=== PATIENT | male | born 2005 | race African-American/Black ===

== ENCOUNTER 2023-02-11 09:37 | Emergency (ER) | payer SELFPAY ==
[~2023-02-11] VITALS: Ht 175.3 cm; Wt 100.0 kg
[2023-02-11 09:45] VITALS: BP 145/92; PULSE 72; RESP 18; TEMP 97.3; O2SAT 99
[2023-02-11] MEDS ORDERED: MAGNESIUM/ALUMINUM HYDROXIDE/SIMETHICONE 30ML UDC PO ONE (10:15)
[2023-02-11] MEDS ORDERED: FAMOTIDINE 20MG TABLET PO ONE (10:15)
[2023-02-11] MEDS ORDERED: ONDANSETRON 4MG ODT PO ONE (10:15)
[2023-02-11 10:58] LABS: BASOPHILS % 0.3 % (0.0-2.0); EOSINOPHILS % 0.1 % (0.0-5.0); HEMATOCRIT. 47.7 % (42.0-52.0); HEMOGLOBIN. 15.7 g/dL (14.0-18.0); LYMPHOCYTES % 12.9 % (20.0-50.0); MEAN CORPUSCULAR HEMOGLOBIN 30.9 pg (28.0-32.0); MEAN CORPUSCULAR HGB CONC 32.9 g/dL (31.0-37.0); MEAN CORPUSCULAR VOLUME 93.9 fL (80.0-94.0); MEAN PLATELET VOLUME 9.1 fl (7.4-10.4); MONOCYTES % 3.9 % (2.0-8.0); NEUTROPHILS % 82.8 % (40.0-76.0); PLATELET 180 x1000/uL (130-400); RED BLOOD CELL COUNT 5.08 mill/uL (4.7-6.1); RED CELL DISTRIBUTION WIDTH 13.6 % (11.6-14.6); WHITE BLOOD COUNT 8.1 x1000/uL (4.5-11.0)
[2023-02-11] MEDS ORDERED: METOCLOPRAMIDE HCL 10MG/2ML VIAL IV ONE (11:00)
[2023-02-11] MEDS ORDERED: SODIUM CHLORIDE 0.9% 1,000 ML IV ONE (11:00)
[2023-02-11 11:28] LABS: ALANINE AMINOTRANSFERASE 23 IU/L (10-49); ALBUMIN 4.5 g/dL (3.2-4.8); ASPARTATE AMINOTRANSFERASE 17 IU/L (<34); BILIRUBIN TOTAL 0.5 mg/dL (0.1-1.0); CALCIUM 9.9 mg/dL (8.7-10.4); CARBON DIOXIDE 24 mEq/L (21-32); CHLORIDE 107 mEq/L (98-107); CREATININE 0.9 mg/dL (0.6-1.3); GLUCOSE 140 mg/dL (70-105); POTASSIUM 3.8 mEq/L (3.5-5.1); PROTEIN TOTAL 6.6 g/dL (6.0-8.3); SODIUM 139 mEq/L (136-145); UREA NITROGEN BLOOD 7 mg/dL (9-23)
[2023-02-12] MEDS ORDERED: OMEP40CA20 PO (11:28)
[2023-02-12] MEDS ORDERED: TOPUD PO (11:28)
== END 2023-02-11 12:12 | disposition left against medical advice (07) ==
LOC: ER 12:07
DX: K21.9 Gastro-esophageal reflux disease without esophagitis (principal); K29.70 Gastritis, unspecified, without bleeding; R11.2 Nausea with vomiting, unspecified
CPT/HCPCS: 99284; 80053; 83690; 85025; 36415; Q0162; J7030

== ENCOUNTER 2023-02-12 06:08 | Emergency (ER) | payer SELFPAY ==
[~2023-02-12] VITALS: Ht 175.3 cm; Wt 91.0 kg
[2023-02-12] MEDS ORDERED: MORPHINE SULFATE 4 MG/ML CPJ (NOT FOR IM USE) IV STA (06:13)
[2023-02-12] MEDS ORDERED: ONDANSETRON HCL 4MG/2ML INJ IV STA (06:13)
[2023-02-12] MEDS ORDERED: SODIUM CHLORIDE 0.9% 1,000 ML IV ONE (06:15)
[2023-02-12 06:16] VITALS: TEMP 98.7; O2SAT 100
[2023-02-12 07:01] LABS: PROTHROMBIN TIME 10.7 sec (9.6-11.0)
[2023-02-12 07:04] LABS: BASOPHILS % 0.3 % (0.0-2.0); EOSINOPHILS % 0.1 % (0.0-5.0); HEMATOCRIT. 46.6 % (42.0-52.0); HEMOGLOBIN. 16.1 g/dL (14.0-18.0); LYMPHOCYTES % 10.1 % (20.0-50.0); MEAN CORPUSCULAR HEMOGLOBIN 31.3 pg (28.0-32.0); MEAN CORPUSCULAR HGB CONC 34.4 g/dL (31.0-37.0); MEAN CORPUSCULAR VOLUME 90.8 fL (80.0-94.0); MONOCYTES % 5.5 % (2.0-8.0); PLATELET 223 x1000/uL (130-400); RED BLOOD CELL COUNT 5.14 mill/uL (4.7-6.1); RED CELL DISTRIBUTION WIDTH 13.6 % (11.6-14.6); WHITE BLOOD COUNT 13.6 x1000/uL (4.5-11.0)
[2023-02-12 07:10] LABS: ALANINE AMINOTRANSFERASE 23 IU/L (10-49); ALBUMIN 4.7 g/dL (3.2-4.8); ASPARTATE AMINOTRANSFERASE 17 IU/L (<34); CALCIUM 10.6 mg/dL (8.7-10.4); CARBON DIOXIDE 28 mEq/L (21-32); CHLORIDE 100 mEq/L (98-107); GLUCOSE 120 mg/dL (70-105); POTASSIUM 3.7 mEq/L (3.5-5.1); PROTEIN TOTAL 7.9 g/dL (6.0-8.3); SODIUM 139 mEq/L (136-145); UREA NITROGEN BLOOD 9 mg/dL (9-23)
[2023-02-12] MEDS ORDERED: ONDANSETRON HCL 4MG/2ML INJ IV NR (08:45)
[2023-02-12] MEDS ORDERED: MORPHINE SULFATE 4 MG/ML CPJ (NOT FOR IM USE) IV NR (08:45)
[2023-02-12 10:12] VITALS: BP 140/63; PULSE 77; RESP 16
[2023-02-12] MEDS ORDERED: OMEP40CA20 PO (11:28)
[2023-02-12] MEDS ORDERED: TOPUD PO (11:28)
[2023-02-12 12:12] LABS: CLARITY URINE CLEAR (CLEAR); COLOR URINE YELLOW (YELLOW); GLUCOSE URINE NEGATIVE (NEGATIVE); KETONES URINE NEGATIVE (NEGATIVE); LEUKOCYTE ESTERASE URINE TRACE (NEGATIVE); NITRITE URINE NEGATIVE (NEGATIVE); OCCULT BLOOD URINE NEGATIVE (NEGATIVE); PH URINE 7.5 (4.5-8.0); PROTEIN URINE 1+ (NEGATIVE); SPECIFIC GRAVITY URINE 1.037 (1.005-1.030)
[2023-02-12 13:02] LABS: RBC URINE NONE SEEN /hpf (0-2)
[2023-02-12 13:03] LABS: BACTERIA URINE 1+; SQUAMOUS EPITHELIAL CELL URINE 2+ /lpf (RARE/1+); YEAST URINE NONE SEEN
== END 2023-02-12 12:21 | disposition home or self-care (01) ==
LOC: ER 06:28
DX: K21.9 Gastro-esophageal reflux disease without esophagitis (principal); K29.70 Gastritis, unspecified, without bleeding; R11.2 Nausea with vomiting, unspecified; J45.909 Unspecified asthma, uncomplicated
CPT/HCPCS: 80053; 81003; 83690; 85025; 85610; 36415; 74176; 96361; 96374; 96375; 99285; J2405; J2270; J7030; Z7610 ×3

== ENCOUNTER 2023-02-16 07:21 | Emergency (ER) | payer MEDICAID ==
[~2023-02-16] VITALS: Ht 175.3 cm; Wt 90.0 kg
[~2023-02-16 07:21] MED LIST: OMEP40CA20 PO; TOPUD PO
[2023-02-16 07:29] VITALS: BP 114/78; PULSE 70; RESP 20; TEMP 98; O2SAT 99
[2023-02-16 08:18] LABS: CLARITY URINE TURBID (CLEAR); COLOR URINE YELLOW (YELLOW); GLUCOSE URINE NEGATIVE (NEGATIVE); KETONES URINE TRACE (NEGATIVE); LEUKOCYTE ESTERASE URINE 1+ (NEGATIVE); NITRITE URINE NEGATIVE (NEGATIVE); OCCULT BLOOD URINE NEGATIVE (NEGATIVE); PROTEIN URINE TRACE (NEGATIVE); SPECIFIC GRAVITY URINE 1.026 (1.005-1.030)
[2023-02-16 08:38] LABS: RBC URINE 0-2 /hpf (0-2); SQUAMOUS EPITHELIAL CELL URINE FEW /lpf (RARE/1+)
[2023-02-16 08:39] LABS: BACTERIA URINE 1+; YEAST URINE NONE SEEN
[2023-02-16 08:46] LABS: AMORPHOUS SEDIMENT URINE 3+ /lpf
[2023-02-16 08:54] LABS: BASOPHILS % 0.6 % (0.0-2.0); EOSINOPHILS % 0.9 % (0.0-5.0); HEMATOCRIT. 48.4 % (42.0-52.0); HEMOGLOBIN. 16.6 g/dL (14.0-18.0); LYMPHOCYTES % 21.7 % (20.0-50.0); MEAN CORPUSCULAR HEMOGLOBIN 31.1 pg (28.0-32.0); MEAN CORPUSCULAR HGB CONC 34.2 g/dL (31.0-37.0); MEAN CORPUSCULAR VOLUME 90.9 fL (80.0-94.0); MEAN PLATELET VOLUME 8.5 fl (7.4-10.4); NEUTROPHILS % 69.8 % (40.0-76.0); PLATELET 232 x1000/uL (130-400); RED BLOOD CELL COUNT 5.32 mill/uL (4.7-6.1); RED CELL DISTRIBUTION WIDTH 13.6 % (11.6-14.6); WHITE BLOOD COUNT 8.3 x1000/uL (4.5-11.0)
[2023-02-16 13:19] LABS: ALANINE AMINOTRANSFERASE 19 IU/L (10-49); ALBUMIN 4.7 g/dL (3.2-4.8); ASPARTATE AMINOTRANSFERASE 17 IU/L (<34); BILIRUBIN TOTAL 1.5 mg/dL (0.1-1.0); CALCIUM 9.5 mg/dL (8.7-10.4); CARBON DIOXIDE 20 mEq/L (21-32); CHLORIDE 106 mEq/L (98-107); GLUCOSE 90 mg/dL (70-105); PROTEIN TOTAL 7.9 g/dL (6.0-8.3); SODIUM 141 mEq/L (136-145); UREA NITROGEN BLOOD 10 mg/dL (9-23)
== END 2023-02-18 17:06 | disposition left against medical advice (07) ==
LOC: ER 07:21
DX: Z53.21 Procedure and treatment not carried out due to patient leaving prior to being seen by health care provider (principal)
CPT/HCPCS: 36415; 80053; 81003; 85025; 99281

== ENCOUNTER 2023-06-13 08:25 | Emergency (ER) | payer SELFPAY ==
[~2023-06-13] VITALS: Ht 162.6 cm; Wt 87.0 kg
[2023-06-13 08:27] VITALS: O2SAT 100
[2023-06-13 08:41] LABS: BASOPHILS % 0.9 % (0.0-2.0); EOSINOPHILS % 1.4 % (0.0-5.0); HEMATOCRIT. 43.9 % (42.0-52.0); LYMPHOCYTES % 21.6 % (20.0-50.0); MEAN CORPUSCULAR HEMOGLOBIN 31.5 pg (28.0-32.0); MEAN CORPUSCULAR HGB CONC 34.1 g/dL (31.0-37.0); MEAN CORPUSCULAR VOLUME 92.3 fL (80.0-94.0); MEAN PLATELET VOLUME 8.5 fl (7.4-10.4); NEUTROPHILS % 69.1 % (40.0-76.0); PLATELET 209 x1000/uL (130-400); RED BLOOD CELL COUNT 4.75 mill/uL (4.7-6.1); RED CELL DISTRIBUTION WIDTH 13.5 % (11.6-14.6); WHITE BLOOD COUNT 6.8 x1000/uL (4.5-11.0)
[2023-06-13 09:22] LABS: ALANINE AMINOTRANSFERASE 49 IU/L (10-49); ALBUMIN 4.6 g/dL (3.2-4.8); ASPARTATE AMINOTRANSFERASE 22 IU/L (<34); BILIRUBIN TOTAL 0.6 mg/dL (0.1-1.0); CARBON DIOXIDE 26 mEq/L (21-32); CHLORIDE 108 mEq/L (98-107); GLUCOSE 117 mg/dL (70-105); PROTEIN TOTAL 7.2 g/dL (6.0-8.3); SODIUM 137 mEq/L (136-145); UREA NITROGEN BLOOD 10 mg/dL (9-23)
[2023-06-13 10:13] LABS: CLARITY URINE CLEAR (CLEAR); COLOR URINE YELLOW (YELLOW); GLUCOSE URINE NEGATIVE (NEGATIVE); KETONES URINE NEGATIVE (NEGATIVE); LEUKOCYTE ESTERASE URINE 1+ (NEGATIVE); NITRITE URINE NEGATIVE (NEGATIVE); OCCULT BLOOD URINE NEGATIVE (NEGATIVE); PH URINE 8.5 (4.5-8.0); PROTEIN URINE NEGATIVE (NEGATIVE); SPECIFIC GRAVITY URINE 1.022 (1.005-1.030); UROBILINOGEN URINE 0.2 E.U./dL (0.2-1.0)
[2023-06-13 10:45] LABS: SQUAMOUS EPITHELIAL CELL URINE RARE /lpf (RARE/1+)
[2023-06-13 10:46] LABS: BACTERIA URINE TRACE; MUCUS URINE TRACE /lpf (NONE/TRACE)
[2023-06-13 10:47] LABS: RBC URINE NONE SEEN /hpf (0-2)
[2023-06-13 10:59] LABS: WBC URINE 15-25 /hpf (0-2)
[2023-06-13] MEDS ORDERED: OMEP40CA20 MT (12:18)
[2023-06-13] MEDS ORDERED: MAG-55 MT (12:18)
[2023-06-13] MEDS: ONDANSETRON 4MG ODT PO ONE (12:29)
[2023-06-13] MEDS: MAGNESIUM/ALUMINUM HYDROXIDE/SIMETHICONE 30ML UDC PO ONE (12:29)
[2023-06-13] MEDS: PANTOPRAZOLE 40MG DR TABLET PO ONE (12:29)
[2023-06-13 12:33] VITALS: BP 134/77; PULSE 90; RESP 19; TEMP 98.2
== END 2023-06-13 13:01 | disposition home or self-care (01) ==
LOC: ER 08:55
DX: K29.70 Gastritis, unspecified, without bleeding (principal); J45.909 Unspecified asthma, uncomplicated; F12.90 Cannabis use, unspecified, uncomplicated
CPT/HCPCS: 99284; 80053; 81003; 83690; 85025; 87086; 36415; Q0162

== ENCOUNTER 2023-06-13 18:30 | Emergency (ER) | payer OTHER ==
[~2023-06-13] VITALS: Ht 172.7 cm; Wt 63.0 kg
[~2023-06-13 18:30] MED LIST changes: +MAG-55 MT; +OMEP40CA20 MT
[2023-06-13 18:34] VITALS: BP 108/61; PULSE 75; RESP 16; TEMP 98.5; O2SAT 100
== END 2023-06-14 01:00 | disposition left against medical advice (07) ==
LOC: ER 18:30
DX: R10.9 Unspecified abdominal pain (principal); Z53.21 Procedure and treatment not carried out due to patient leaving prior to being seen by health care provider
CPT/HCPCS: 99281

== ENCOUNTER 2023-06-20 09:26 | Emergency (ER) | payer OTHER ==
[~2023-06-20] VITALS: Ht 175.3 cm; Wt 70.0 kg
[2023-06-20 09:27] VITALS: O2SAT 99
[2023-06-20] MEDS: MORPHINE SULFATE 4 MG/ML INJ (FOR IV/IM USE) IV STA (09:53)
[2023-06-20] MEDS: FAMOTIDINE 20MG/2ML VIAL IV STA (09:53)
[2023-06-20 09:54] VITALS: TEMP 98.1
[2023-06-20] MEDS: ONDANSETRON HCL 4MG/2ML INJ IV STA (09:54)
[2023-06-20 10:07] LABS: BASOPHILS % 0.8 % (0.0-2.0); EOSINOPHILS % 0.5 % (0.0-5.0); HEMOGLOBIN. 15.1 g/dL (14.0-18.0); MEAN CORPUSCULAR HEMOGLOBIN 31.7 pg (28.0-32.0); MEAN CORPUSCULAR HGB CONC 34.3 g/dL (31.0-37.0); MEAN CORPUSCULAR VOLUME 92.5 fL (80.0-94.0); MEAN PLATELET VOLUME 8.3 fl (7.4-10.4); MONOCYTES % 4.8 % (2.0-8.0); NEUTROPHILS % 79.9 % (40.0-76.0); PLATELET 216 x1000/uL (130-400); RED BLOOD CELL COUNT 4.76 mill/uL (4.7-6.1); RED CELL DISTRIBUTION WIDTH 13.6 % (11.6-14.6); WHITE BLOOD COUNT 8.4 x1000/uL (4.5-11.0)
[2023-06-20 10:20] LABS: INR 0.9
[2023-06-20 10:38] LABS: ALANINE AMINOTRANSFERASE 44 IU/L (10-49); ALBUMIN 4.5 g/dL (3.2-4.8); ASPARTATE AMINOTRANSFERASE 22 IU/L (<34); BILIRUBIN TOTAL 0.7 mg/dL (0.1-1.0); CALCIUM 9.1 mg/dL (8.7-10.4); CARBON DIOXIDE 28 mEq/L (21-32); CHLORIDE 105 mEq/L (98-107); CREATININE 1.1 mg/dL (0.6-1.3); GLUCOSE 123 mg/dL (70-105); POTASSIUM 3.8 mEq/L (3.5-5.1); PROTEIN TOTAL 6.7 g/dL (6.0-8.3); SODIUM 139 mEq/L (136-145); UREA NITROGEN BLOOD 11 mg/dL (9-23)
[2023-06-20] MEDS: MORPHINE SULFATE 4 MG/ML INJ (FOR IV/IM USE) IV ONE (12:39)
[2023-06-20] MEDS: HALOPERIDOL LACTATE 5MG/ML VIAL IM ONE (12:40)
[2023-06-20 16:30] VITALS: BP 122/67; PULSE 63; RESP 19
[2023-06-20 17:45] LABS: CLARITY URINE CLEAR (CLEAR); COLOR URINE YELLOW (YELLOW); GLUCOSE URINE NEGATIVE (NEGATIVE); KETONES URINE NEGATIVE (NEGATIVE); LEUKOCYTE ESTERASE URINE TRACE (NEGATIVE); NITRITE URINE NEGATIVE (NEGATIVE); OCCULT BLOOD URINE NEGATIVE (NEGATIVE); PH URINE >=9.0 (4.5-8.0); PROTEIN URINE TRACE (NEGATIVE); SPECIFIC GRAVITY URINE 1.024 (1.005-1.030); UROBILINOGEN URINE 0.2 E.U./dL (0.2-1.0)
[2023-06-20 18:02] LABS: BACTERIA URINE NONE SEEN; RBC URINE 0-2 /hpf (0-2); SQUAMOUS EPITHELIAL CELL URINE 1+ /lpf (RARE/1+); WBC URINE 0-2 /hpf (0-2)
== END 2023-06-20 17:14 | disposition left against medical advice (07) ==
LOC: ER 09:26 → CANBEDREQ 10:28 → EDBEDREQ 12:36 → ER 17:14 → CANBEDREQ 06-21 10:35
DX: R10.9 Unspecified abdominal pain (principal); F12.10 Cannabis abuse, uncomplicated; J45.909 Unspecified asthma, uncomplicated; Z98.890 Other specified postprocedural states
CPT/HCPCS: 80053; 81003; 83690; 85025; 85610; 36415; 96372; 96374; 96375; 96376; 99285; J3490; J1630; J2405; J2270; Z7610 ×2

== ENCOUNTER 2023-11-01 07:32 | Emergency (ER) | payer MEDICAID, OTHER ==
[~2023-11-01] VITALS: Ht 172.7 cm; Wt 86.0 kg
[2023-11-01 07:38] VITALS: O2SAT 100
[2023-11-01] MEDS ORDERED: FAMOTIDINE 20MG/2ML VIAL IV STA (07:52)
[2023-11-01] MEDS ORDERED: ONDANSETRON HCL 4MG/2ML INJ IV STA (07:52)
[2023-11-01] MEDS ORDERED: SODIUM CHLORIDE 0.9% 1,000 ML IV ONE (08:00)
[2023-11-01] MEDS ORDERED: MORPHINE SULFATE 4 MG/ML INJ (FOR IV/IM USE) IV ONE (08:00)
[2023-11-01 08:09] LABS: BASOPHILS % 0.7 % (0.0-2.0); EOSINOPHILS % 0.5 % (0.0-5.0); HEMATOCRIT. 42.4 % (42.0-52.0); HEMOGLOBIN. 14.7 g/dL (14.0-18.0); LYMPHOCYTES % 14.8 % (20.0-50.0); MEAN CORPUSCULAR HEMOGLOBIN 31.3 pg (28.0-32.0); MEAN CORPUSCULAR HGB CONC 34.6 g/dL (31.0-37.0); MEAN CORPUSCULAR VOLUME 90.5 fL (80.0-94.0); MEAN PLATELET VOLUME 8.4 fl (7.4-10.4); MONOCYTES % 4.2 % (2.0-8.0); NEUTROPHILS % 79.8 % (40.0-76.0); PLATELET 235 x1000/uL (130-400); RED BLOOD CELL COUNT 4.68 mill/uL (4.7-6.1); RED CELL DISTRIBUTION WIDTH 13.2 % (11.6-14.6); WHITE BLOOD COUNT 8.4 x1000/uL (4.5-11.0)
[2023-11-01 08:16] LABS: CLARITY URINE TURBID (CLEAR); COLOR URINE YELLOW (YELLOW); GLUCOSE URINE NEGATIVE (NEGATIVE); KETONES URINE TRACE (NEGATIVE); LEUKOCYTE ESTERASE URINE TRACE (NEGATIVE); NITRITE URINE NEGATIVE (NEGATIVE); OCCULT BLOOD URINE NEGATIVE (NEGATIVE); PROTEIN URINE TRACE (NEGATIVE); SPECIFIC GRAVITY URINE 1.033 (1.005-1.030)
[2023-11-01 08:20] LABS: CHLORIDE 110 mEq/L (98-107); POTASSIUM 4.1 mEq/L (3.5-5.1); SODIUM 140 mEq/L (136-145)
[2023-11-01 08:21] LABS: CARBON DIOXIDE 24 mEq/L (21-32)
[2023-11-01 08:22] LABS: CALCIUM 9.7 mg/dL (8.7-10.4)
[2023-11-01 08:27] LABS: GLUCOSE 128 mg/dL (70-105); UREA NITROGEN BLOOD 13 mg/dL (9-23)
[2023-11-01 08:28] LABS: ALANINE AMINOTRANSFERASE 26 IU/L (10-49); ALBUMIN 4.8 g/dL (3.2-4.8); ASPARTATE AMINOTRANSFERASE 17 IU/L (<34)
[2023-11-01 08:29] LABS: BILIRUBIN DIRECT 0.2 mg/dL (<=3.0); BILIRUBIN TOTAL 0.8 mg/dL (0.1-1.0); PROTEIN TOTAL 7.1 g/dL (6.0-8.3)
[2023-11-01 08:30] LABS: AMORPHOUS SEDIMENT URINE 4+ /lpf; BACTERIA URINE 1+; RBC URINE NONE SEEN /hpf (0-2); SQUAMOUS EPITHELIAL CELL URINE NONE SEEN /lpf (RARE/1+); YEAST URINE NONE SEEN
[2023-11-01] MEDS ORDERED: OMEPRAZOLE 20MG CAPSULE EXTENDED RELEASE PO ONE (08:45)
[2023-11-01] MEDS ORDERED: PANTOPRAZOLE 40MG DR TABLET PO ONE (08:45)
[2023-11-01] MEDS ORDERED: PANTOPRAZOLE 40MG DR TABLET PO SCH (08:45)
[2023-11-01] MEDS: DICYCLOMINE 10 MG/5 ML ORAL SYR PO STA (08:53)
[2023-11-01] MEDS: MAGNESIUM/ALUMINUM HYDROXIDE/SIMETHICONE 30ML UDC PO STA (08:53)
[2023-11-01] MEDS: PANTOPRAZOLE 40MG DR TABLET PO SCH (08:53)
[2023-11-01 08:59] VITALS: BP 132/85; PULSE 66; RESP 16; TEMP 36.55848; O2SAT 100
[2023-11-01] MEDS ORDERED: OMEP40CA20 PO (23:28)
[2023-11-01] MEDS ORDERED: OMEP20TA23 PO (23:30)
== END 2023-11-01 09:02 | disposition home or self-care (01) ==
LOC: ER 07:32
DX: K21.9 Gastro-esophageal reflux disease without esophagitis (principal); J45.909 Unspecified asthma, uncomplicated; Z79.899 Other long term (current) drug therapy
CPT/HCPCS: 36415; 80048; 80076; 81003; 85025; 99283; J7030

== ENCOUNTER 2023-11-04 05:47 | Emergency (ER) | payer MEDICAID ==
[~2023-11-04] VITALS: Ht 165.1 cm; Wt 131.5 kg
[~2023-11-04 05:47] MED LIST changes: +OMEP20TA23 PO
[2023-11-04 05:57] VITALS: BP 133/88; PULSE 78; RESP 16; TEMP 97.6; O2SAT 100
[2023-11-04] MEDS ORDERED: ONDANSETRON HCL 4MG/2ML INJ IV STA (06:02)
[2023-11-04] MEDS ORDERED: HALOPERIDOL LACTATE 5MG/ML VIAL IM ONE (06:15)
[2023-11-04] MEDS ORDERED: SODIUM CHLORIDE 0.9% 1,000 ML IV ONE (06:15)
[2023-11-04 06:33] LABS: BASOPHILS % 0.5 % (0.0-2.0); EOSINOPHILS % 0.6 % (0.0-5.0); HEMATOCRIT. 45.3 % (42.0-52.0); HEMOGLOBIN. 15.2 g/dL (14.0-18.0); MEAN CORPUSCULAR HEMOGLOBIN 30.9 pg (28.0-32.0); MEAN CORPUSCULAR HGB CONC 33.6 g/dL (31.0-37.0); MEAN CORPUSCULAR VOLUME 92.1 fL (80.0-94.0); MEAN PLATELET VOLUME 8.6 fl (7.4-10.4); MONOCYTES % 5.3 % (2.0-8.0); NEUTROPHILS % 71.6 % (40.0-76.0); PLATELET 243 x1000/uL (130-400); RED BLOOD CELL COUNT 4.92 mill/uL (4.7-6.1); RED CELL DISTRIBUTION WIDTH 13.7 % (11.6-14.6); WHITE BLOOD COUNT 10.3 x1000/uL (4.5-11.0)
[2023-11-04 06:34] LABS: INR 0.9; PROTHROMBIN TIME 10.6 sec (9.6-11.0)
[2023-11-04 06:36] LABS: CHLORIDE 109 mEq/L (98-107); POTASSIUM 3.6 mEq/L (3.5-5.1); SODIUM 139 mEq/L (136-145)
[2023-11-04 06:37] LABS: CALCIUM 9.5 mg/dL (8.7-10.4); CARBON DIOXIDE 24 mEq/L (21-32)
[2023-11-04 06:42] LABS: CREATININE 1.2 mg/dL (0.6-1.3); GLUCOSE 119 mg/dL (70-105); UREA NITROGEN BLOOD 13 mg/dL (9-23)
[2023-11-04 06:44] LABS: ALANINE AMINOTRANSFERASE 20 IU/L (10-49); ALBUMIN 4.9 g/dL (3.2-4.8); ASPARTATE AMINOTRANSFERASE 16 IU/L (<34); BILIRUBIN DIRECT 0.2 mg/dL (<=3.0); BILIRUBIN TOTAL 0.9 mg/dL (0.1-1.0); PROTEIN TOTAL 7.3 g/dL (6.0-8.3)
[2023-11-04 07:18] LABS: ETHANOL BLOOD < 10 mg/dL (<10)
== END 2023-11-04 08:52 | disposition left against medical advice (07) ==
LOC: ER 05:47
DX: R11.2 Nausea with vomiting, unspecified (principal); F12.90 Cannabis use, unspecified, uncomplicated; K21.9 Gastro-esophageal reflux disease without esophagitis; Z79.899 Other long term (current) drug therapy
CPT/HCPCS: 80076; 80048; 80320; 83690; 85025; 85610; 36415; 71045; 99284; J7030; G0480

== ENCOUNTER 2023-11-06 06:16 | Emergency (ER) | payer MEDICAID ==
[~2023-11-06] VITALS: Ht 177.8 cm; Wt 90.0 kg
[2023-11-06 06:21] VITALS: O2SAT 98
[2023-11-06] MEDS: FAMOTIDINE 20MG/2ML VIAL IV STA (07:00)
[2023-11-06] MEDS: SODIUM CHLORIDE 0.9% 1,000 ML IV ONE (07:00)
[2023-11-06] MEDS: ONDANSETRON HCL 4MG/2ML INJ IV STA (07:01)
[2023-11-06] MEDS: MORPHINE SULFATE 4 MG/ML INJ (FOR IV/IM USE) IV STA (07:01)
[2023-11-06 07:03] LABS: BASOPHILS % 1.8 % (0.0-2.0); EOSINOPHILS % 0.5 % (0.0-5.0); HEMATOCRIT. 46.9 % (42.0-52.0); HEMOGLOBIN. 15.7 g/dL (14.0-18.0); LYMPHOCYTES % 11.6 % (20.0-50.0); MEAN CORPUSCULAR HEMOGLOBIN 30.8 pg (28.0-32.0); MEAN CORPUSCULAR HGB CONC 33.6 g/dL (31.0-37.0); MEAN CORPUSCULAR VOLUME 91.6 fL (80.0-94.0); MEAN PLATELET VOLUME 8.5 fl (7.4-10.4); NEUTROPHILS % 82.1 % (40.0-76.0); PLATELET 254 x1000/uL (130-400); RED BLOOD CELL COUNT 5.12 mill/uL (4.7-6.1); RED CELL DISTRIBUTION WIDTH 13.7 % (11.6-14.6); WHITE BLOOD COUNT 11.9 x1000/uL (4.5-11.0)
[2023-11-06 07:04] LABS: CHLORIDE 106 mEq/L (98-107); SODIUM 138 mEq/L (136-145)
[2023-11-06 07:05] LABS: CARBON DIOXIDE 25 mEq/L (21-32)
[2023-11-06 07:10] LABS: CREATININE 1.2 mg/dL (0.6-1.3)
[2023-11-06 07:11] LABS: GLUCOSE 134 mg/dL (70-105); UREA NITROGEN BLOOD 13 mg/dL (9-23)
[2023-11-06 07:12] LABS: ALANINE AMINOTRANSFERASE 14 IU/L (10-49); ALBUMIN 4.9 g/dL (3.2-4.8); ASPARTATE AMINOTRANSFERASE 11 IU/L (<34)
[2023-11-06 07:13] LABS: BILIRUBIN DIRECT 0.3 mg/dL (<=3.0); BILIRUBIN TOTAL 1.2 mg/dL (0.1-1.0); PROTEIN TOTAL 7.5 g/dL (6.0-8.3)
[2023-11-06] MEDS ORDERED: ONDA-239 PO (10:07)
[2023-11-06 10:23] VITALS: BP 115/73; PULSE 76; RESP 18; TEMP 36.89184; O2SAT 98
== END 2023-11-06 10:25 | disposition home or self-care (01) ==
LOC: ER 06:23
DX: R10.13 Epigastric pain (principal); R11.2 Nausea with vomiting, unspecified
CPT/HCPCS: 80076; 80048; 83690; 85025; 36415; 74176; 96361; 96374; 96375; 99285; J3490; J2405; J2270; J7030; Z7610 ×2